=== PATIENT | female | born 1970 | race African-American/Black ===

== ENCOUNTER 2017-03-17 22:55 | Emergency (ER) | payer MEDICARE, MEDICAID ==
[~2017-03-17] VITALS: Ht 165.1 cm; Wt 75.0 kg
[2017-03-17] MEDS ORDERED: ONDANSETRON HCL 4MG/2ML VIAL IV STA (23:08)
[2017-03-17] MEDS ORDERED: SODIUM CHLORIDE 0.9% 1,000 ML IV ONE (23:08)
[2017-03-17 23:27] LABS: BASOPHILS % 0.3 % (0.0-2.0); EOSINOPHILS % 0.4 % (0.0-5.0); HEMATOCRIT. 35.6 % (36.0-48.0); HEMOGLOBIN. 11.8 g/dL (12.0-16.0); LYMPHOCYTES % 18.2 % (20.0-50.0); MEAN CORPUSCULAR HEMOGLOBIN 30.8 pg (28.0-32.0); MEAN CORPUSCULAR HGB CONC 33.2 g/dL (31.0-37.0); MEAN CORPUSCULAR VOLUME 92.8 fL (81.0-99.0); MEAN PLATELET VOLUME 8.7 fl (7.4-10.4); NEUTROPHILS % 74.1 % (40.0-76.0); PLATELET 230 x1000/uL (130-400); RED BLOOD CELL COUNT 3.84 mill/uL (4.2-5.4); RED CELL DISTRIBUTION WIDTH 14.7 % (11.6-14.6); WHITE BLOOD COUNT 11.4 x1000/uL (4.5-11.0)
[2017-03-17 23:35] LABS: PROTHROMBIN TIME 10.5 sec
[2017-03-17 23:50] LABS: ALANINE AMINOTRANSFERASE 15 IU/L (13-61); ALBUMIN 3.3 g/dL (3.4-5.0); ANION GAP 18; CALCIUM 8.6 mg/dL (8.5-10.1); CARBON DIOXIDE 23 mEq/L (21-32); CHLORIDE 100 mEq/L (98-107); ETHANOL BLOOD 25 mg/dL; INDEX HEMOLYSI 1 (1-3); INDEX ICTERIC 1 (1-4); INDEX LIPEMIC 1 (1-3); UREA NITROGEN BLOOD 8 mg/dL (7-21)
[2017-03-17 23:53] LABS: eGFR > 60 mL/min (>60)
[2017-03-18] MEDS ORDERED: POTASSIUM CHLORIDE 20MEQ TABLET SR PO ONE (00:15)
[2017-03-18 01:30] VITALS: BP 114/70
== END 2017-03-18 01:45 | disposition home or self-care (01) ==
LOC: ER 22:57
DX: R55 Syncope and collapse (principal); Z88.6 Allergy status to analgesic agent; F17.200 Nicotine dependence, unspecified, uncomplicated
CPT/HCPCS: 36415; 71010; 80053; 85025; 85610; 93005; 96361; 96374; 99285; G0482; J2405; J7030

== ENCOUNTER 2018-07-09 08:47 | Inpatient (IN) | payer MEDICARE, MEDICAID ==
[~2018-07-09] VITALS: Ht 165.1 cm; Wt 54.9 kg
[2018-07-09] MEDS ORDERED: ONDANSETRON 4MG ODT PO STA (12:26)
[2018-07-09 12:59] LABS: BASOPHILS % 0.3 % (0.0-2.0); EOSINOPHILS % 0.1 % (0.0-5.0); HEMATOCRIT. 40.3 % (36.0-48.0); HEMOGLOBIN. 13.9 g/dL (12.0-16.0); MEAN CORPUSCULAR HEMOGLOBIN 33.4 pg (28.0-32.0); MEAN CORPUSCULAR VOLUME 96.7 fL (81.0-99.0); MEAN PLATELET VOLUME 9.1 fl (7.4-10.4); MONOCYTES % 8.5 % (2.0-8.0); NEUTROPHILS % 80.1 % (40.0-76.0); PLATELET 239 x1000/uL (130-400); RED BLOOD CELL COUNT 4.17 mill/uL (4.2-5.4); RED CELL DISTRIBUTION WIDTH 12.9 % (11.6-14.6)
[2018-07-09 13:00] LABS: CHLORIDE 93 mEq/L (98-107)
[2018-07-09 13:04] LABS: HCG SCREEN NEGATIVE
[2018-07-09] MEDS ORDERED: POTASSIUM CHLORIDE INJ 40 MEQ in DEXT 5% WATER 250 ML IV ONE (13:45)
[2018-07-09] MEDS ORDERED: PIPERACILLIN/TAZOBACTAM 3.375GM/50ML PREMIX IV NR (14:00)
[2018-07-09] MEDS ORDERED: SODIUM CHLORIDE 0.9% 1,000 ML IV SCH ×2 (15:00→15:30)
[2018-07-09] MEDS ORDERED: ATROPINE SULFATE 0.4MG/ML VIAL IV PRN ×3 (15:00→17:15)
[2018-07-09] MEDS ORDERED: FENTANYL CITRATE/PF 50MCG/ML 2ML VIAL IV PRN ×2 (15:00→15:30)
[2018-07-09] MEDS ORDERED: ONDANSETRON HCL 4MG/2ML VIAL IV PRN ×5 (15:00→17:15)
[2018-07-09] MEDS ORDERED: HYDROMORPHONE HCL/PF 2MG/ML CPJ IV PRN ×3 (15:00→17:00)
[2018-07-09] MEDS ORDERED: MEPERIDINE HCL/PF 25MG/ML CPJ IV PRN ×3 (15:00→17:00)
[2018-07-09] MEDS ORDERED: DEXT 5%/0.45% NACL KCL 20MEQ/L 1,000 ML IV SCH ×2 (15:05→17:15)
[2018-07-09] MEDS ORDERED: MIDAZOLAM HCL 2 MG/2 ML VIAL ONE (15:11)
[2018-07-09] MEDS ORDERED: PROPOFOL 200MG/20ML VIAL IV ONE (15:11)
[2018-07-09] MEDS ORDERED: FENTANYL CITRATE/PF 50MCG/ML 5ML VIAL ONE (15:11)
[2018-07-09] MEDS ORDERED: ROCURONIUM BROMIDE 10MG/ML VIAL 5ML IV ONE (15:11)
[2018-07-09] MEDS ORDERED: SKIN ADHESIVE 0.7 GM EA TOP ONE (15:12)
[2018-07-09] MEDS ORDERED: BUPIVACAINE HCL/PF 0.5% (5MG/ML) 10ML ONE (15:12)
[2018-07-09] MEDS ORDERED: HYDROCODONE/ACETAMINOPHEN 5/325MG TABLET PO PRN ×6 (15:15→17:15)
[2018-07-09] MEDS ORDERED: ACETAMINOPHEN 325MG TABLET PO PRN ×2 (15:15→15:30)
[2018-07-09] MEDS ORDERED: MORPHINE SULFATE 4 MG/ML CPJ (NOT FOR IM USE) IV PRN ×3 (15:15→15:30)
[2018-07-09] MEDS ORDERED: MORPHINE SULFATE 2 MG/ML CPJ (NOT FOR IM USE) IV PRN (15:15)
[2018-07-09] MEDS ORDERED: ONDANSETRON HCL 4MG/2ML VIAL ONE (15:38)
[2018-07-09] MEDS ORDERED: METOCLOPRAMIDE HCL 10MG/2ML VIAL ONE (15:38)
[2018-07-09] MEDS: FENTANYL CITRATE/PF 50MCG/ML 2ML VIAL IV PRN ×2 (17:06→17:17)
[2018-07-09 17:42] LABS: CLARITY URINE CLOUDY (CLEAR); COLOR URINE ORANGE (YELLOW); KETONES URINE TRACE (NEGATIVE); LEUKOCYTE ESTERASE URINE 1+ (NEGATIVE); NITRITE URINE POSITIVE (NEGATIVE); OCCULT BLOOD URINE NEGATIVE (NEGATIVE); PROTEIN URINE 2+ (NEGATIVE); SPECIFIC GRAVITY URINE 1.023 (1.005-1.030)
[2018-07-09 18:30] VITALS: BP 112/78
[2018-07-09 19:53] VITALS: BP 110/80
[2018-07-09 20:26] LABS: CHLORIDE 98 mEq/L (98-107)
[2018-07-09] MEDS ORDERED: POTASSIUM CHLORIDE 20MEQ TABLET SR PO NR (22:30)
[2018-07-09] MEDS: DEXT 5%/0.45% NACL KCL 20MEQ/L 1,000 ML IV SCH (23:10)
[2018-07-09 23:50] VITALS: BP 101/70
[2018-07-10] VITALS (9 sets, daily range): BP systolic 88–113; BP diastolic 59–70
[2018-07-10] MEDS: DEXT 5%/0.45% NACL KCL 20MEQ/L 1,000 ML IV SCH ×2 (08:20→18:04)
[2018-07-10] MEDS ORDERED: SODIUM CHLORIDE 0.9% 1000ML BAG (SEPSIS BOLUS) IV ONE (09:15)
[2018-07-10] MEDS ORDERED: POTASSIUM CHLORIDE 20MEQ TABLET SR PO NR (09:50)
[2018-07-10] MEDS ORDERED: SODIUM CHLORIDE 0.9% 1,000 ML IV SCH (10:00)
[2018-07-10 12:30] LABS: BASOPHILS % 0.2 % (0.0-2.0); EOSINOPHILS % 0.4 % (0.0-5.0); HEMATOCRIT. 34.7 % (36.0-48.0); HEMOGLOBIN. 11.8 g/dL (12.0-16.0); LYMPHOCYTES % 12.1 % (20.0-50.0); MEAN CORPUSCULAR HEMOGLOBIN 33.2 pg (28.0-32.0); MEAN CORPUSCULAR VOLUME 97.6 fL (81.0-99.0); MEAN PLATELET VOLUME 9.2 fl (7.4-10.4); MONOCYTES % 9.6 % (2.0-8.0); NEUTROPHILS % 77.7 % (40.0-76.0); PLATELET 231 x1000/uL (130-400); RED BLOOD CELL COUNT 3.55 mill/uL (4.2-5.4); RED CELL DISTRIBUTION WIDTH 13.1 % (11.6-14.6)
[2018-07-10 12:44] LABS: CHLORIDE 102 mEq/L (98-107)
[2018-07-10 14:21] LABS: *BARBITURATES SCREEN URINE NEGATIVE (NEGATIVE); *COCAINE SCREEN URINE NEGATIVE (NEGATIVE); METHADONE URINE SCREEN NEGATIVE (NEGATIVE)
[2018-07-10 14:22] LABS: *AMPHETAMINES SCREEN URINE NEGATIVE (NEGATIVE); OPIATES URINE SCREEN NEGATIVE (NEGATIVE); PHENCYCLIDINE URINE SCREEN NEGATIVE (NEGATIVE)
[2018-07-10 14:31] LABS: *BENZODIAZEPINES SCREEN URINE PRESUMTIVE POSITIVE (NEGATIVE); CANNABINOID URINE SCREEN PRESUMTIVE POSITIVE (NEGATIVE)
== END 2018-07-10 20:55 | disposition home or self-care (01) | DRG 341 ==
LOC: ER 08:47 → EDBEDREQTM 13:57 → EDBEDREQ 13:57 → ENRESERV 15:18 → ER 15:25 → CANBEDREQ 17:38 → OBSVTOIN 18:37 → 8WST 18:37
PROVIDERS: ADMIT Family Medicine; ATTEND Family Medicine
PROC: 0DTJ4ZZ Resection of Appendix, Percutaneous Endoscopic Approach (ICD-10-PCS; principal; 2018-07-09 14:49)
DX: K35.80 Unspecified acute appendicitis (principal); E43 Unspecified severe protein-calorie malnutrition; J84.9 Interstitial pulmonary disease, unspecified; I10 Essential (primary) hypertension; J44.9 Chronic obstructive pulmonary disease, unspecified; E86.0 Dehydration; K57.30 Diverticulosis of large intestine without perforation or abscess without bleeding; K66.8 Other specified disorders of peritoneum; Z86.73 Personal history of transient ischemic attack (TIA), and cerebral infarction without residual deficits; Z88.5 Allergy status to narcotic agent; Z88.8 Allergy status to other drugs, medicaments and biological substances; Z68.20 Body mass index [BMI] 20.0-20.9, adult; Z79.899 Other long term (current) drug therapy
CPT/HCPCS: 36415; 74176; 80053; 80305; 81003; 83690; 84703; 85025; 88304; 99285; J2250; J2405; J2543; J2704; J2765; J3010; J3480; J3490; J7030; J7060; Q0162

== ENCOUNTER 2019-01-18 05:48 | Day surgery (SDC) | payer MEDICARE, MEDICAID ==
[~2019-01-18] VITALS: Ht 165.1 cm; Wt 53.1 kg
[2019-01-18] MEDS ORDERED: LACTATED RINGERS 1,000 ML IV SCH (06:30)
[2019-01-18 06:47] LABS: BASOPHILS % 0.6 % (0.0-2.0); EOSINOPHILS % 0.6 % (0.0-5.0); HEMATOCRIT. 36.9 % (36.0-48.0); HEMOGLOBIN. 12.2 g/dL (12.0-16.0); LYMPHOCYTES % 21.7 % (20.0-50.0); MEAN CORPUSCULAR HEMOGLOBIN 33.2 pg (28.0-32.0); MEAN CORPUSCULAR VOLUME 100.3 fL (81.0-99.0); MEAN PLATELET VOLUME 8.8 fl (7.4-10.4); MONOCYTES % 11.6 % (2.0-8.0); NEUTROPHILS % 65.5 % (40.0-76.0); PLATELET 217 x1000/uL (130-400); RED BLOOD CELL COUNT 3.68 mill/uL (4.2-5.4); RED CELL DISTRIBUTION WIDTH 13.8 % (11.6-14.6)
[2019-01-18 06:52] LABS: CHLORIDE 98 mEq/L (98-107)
[2019-01-18 06:58] LABS: PARTIAL THROMBOPLASTIN TIME 26.4 sec (23.4-31.0); PROTHROMBIN TIME 10.5 sec (9.1-11.1)
[2019-01-18 07:09] LABS: HCG SCREEN NEGATIVE
[2019-01-18] MEDS ORDERED: ALBUMIN HUMAN 12.5G/250ML (5%) IV ONE (07:50)
[2019-01-18] MEDS ORDERED: POTA-9 PO (07:56)
[2019-01-18] MEDS ORDERED: CHLO25TA2 PO (07:56)
[2019-01-18] MEDS ORDERED: HYDR200T35 PO (07:56)
[2019-01-18] MEDS ORDERED: ASPI-1159 PO (07:56)
[2019-01-18] MEDS ORDERED: GABA800T97 PO (07:56)
[2019-01-18] MEDS ORDERED: PRED5TAB PO (07:56)
[2019-01-18] MEDS ORDERED: LIP40 PO (07:56)
[2019-01-18] MEDS ORDERED: CALC-30 PO (07:56)
[2019-01-18] MEDS ORDERED: PROPOFOL 200MG/20ML VIAL IV ONE (07:57)
[2019-01-18] MEDS ORDERED: LIDOCAINE HCL/PF 1% 10 MG/ML 5ML VIAL ONE (07:57)
[2019-01-18] MEDS ORDERED: SUCCINYLCHOLINE CHLORIDE 200MG/10ML IV ONE (07:57)
[2019-01-18] MEDS ORDERED: ONDANSETRON HCL 4MG/2ML INJ ONE (07:57)
[2019-01-18] MEDS ORDERED: GLYCOPYRROLATE 0.2 MG/ML 2ML VIAL ONE (07:57)
[2019-01-18] MEDS ORDERED: METOCLOPRAMIDE HCL 10MG/2ML VIAL ONE (07:57)
[2019-01-18] MEDS ORDERED: MIDAZOLAM HCL 2 MG/2 ML VIAL ONE (07:57)
[2019-01-18] MEDS ORDERED: FENTANYL CITRATE/PF 50MCG/ML 2ML VIAL ONE ×2 (07:57→08:36)
[2019-01-18] MEDS ORDERED: KCL 20MEQ/100ML PREMIX 100 ML IV NR (08:00)
[2019-01-18] MEDS ORDERED: SODIUM CHLORIDE 0.9% 1,000 ML IV ONE (08:56)
[2019-01-18] MEDS ORDERED: ONDANSETRON HCL 4MG/2ML INJ IV PRN (09:00)
[2019-01-18] MEDS ORDERED: MEPERIDINE HCL/PF 25MG/ML CPJ IV PRN ×2 (09:00)
[2019-01-18] MEDS ORDERED: HYDROMORPHONE HCL/PF 2MG/ML CPJ IV PRN (09:00)
== END 2019-01-18 11:20 | disposition home or self-care (01) ==
LOC: OR 05:48
PROVIDERS: ATTEND Obstetrics & Gynecology
DX: N85.8 Other specified noninflammatory disorders of uterus (principal); I10 Essential (primary) hypertension; E78.00 Pure hypercholesterolemia, unspecified; I69.351 Hemiplegia and hemiparesis following cerebral infarction affecting right dominant side; M32.9 Systemic lupus erythematosus, unspecified; M19.90 Unspecified osteoarthritis, unspecified site; Z98.890 Other specified postprocedural states; Z72.89 Other problems related to lifestyle; Z88.0 Allergy status to penicillin; Z88.5 Allergy status to narcotic agent; Z88.8 Allergy status to other drugs, medicaments and biological substances; Z79.82 Long term (current) use of aspirin; Z79.899 Other long term (current) drug therapy; Z90.49 Acquired absence of other specified parts of digestive tract; Z83.3 Family history of diabetes mellitus; Z82.49 Family history of ischemic heart disease and other diseases of the circulatory system; Z82.3 Family history of stroke
CPT/HCPCS: 36415; 58558; 80053; 84703; 85025; 85610; 85730; 86850; 86900; 86901; 88305; 93005; J0330; J2250; J2405; J2704; J2765; J3010; J3480; J3490; P9041

== ENCOUNTER 2020-10-24 12:20 | Emergency (ER) | payer MEDICARE, MEDICAID ==
[~2020-10-24] VITALS: Ht 165.1 cm; Wt 66.0 kg
[~2020-10-24 12:20] MED LIST: ASPI-1497 PO; CALC-30 PO; CHLO25TA2 PO; GABA800T97 PO; HYDR200T35 PO; LIP40 PO; POTA-9 PO; PRED5TAB PO
[2020-10-24] MEDS ORDERED: KETOROLAC 60MG/2ML VIAL IM ONE (16:45)
[2020-10-24] MEDS ORDERED: CYCLOBENZAPRINE 10MG TABLET PO ONE (16:45)
[2020-10-24 16:54] VITALS: BP 148/98
== END 2020-10-24 17:17 | disposition home or self-care (01) ==
LOC: ER 12:34
DX: M54.5 Low back pain (principal); I10 Essential (primary) hypertension; M32.9 Systemic lupus erythematosus, unspecified; Z86.73 Personal history of transient ischemic attack (TIA), and cerebral infarction without residual deficits; Z88.0 Allergy status to penicillin; Z88.6 Allergy status to analgesic agent; Z79.82 Long term (current) use of aspirin
CPT/HCPCS: 96372; 99283; J1885

== ENCOUNTER 2023-02-15 13:14 | Emergency (ER) | payer MEDICARE, MEDICAID ==
[~2023-02-15] VITALS: Ht 165.1 cm; Wt 69.0 kg
[~2023-02-15 13:14] MED LIST changes: +CALC-1249 PO; -CALC-30 PO; +POTA-202 PO; -POTA-9 PO
[2023-02-15 13:36] VITALS: BP 144/105
[2023-02-15] MEDS ORDERED: IBUPROFEN 400MG TABLET PO ONE (15:45)
[2023-02-15 16:27] LABS: BASOPHILS % 0.3 % (0.0-2.0); EOSINOPHILS % 0.7 % (0.0-5.0); HEMATOCRIT. 36.6 % (36.0-48.0); HEMOGLOBIN. 12.4 g/dL (12.0-16.0); LYMPHOCYTES % 24.1 % (20.0-50.0); MEAN CORPUSCULAR HEMOGLOBIN 31.8 pg (28.0-32.0); MEAN CORPUSCULAR VOLUME 94.1 fL (81.0-99.0); MEAN PLATELET VOLUME 9.2 fl (7.4-10.4); MONOCYTES % 8.6 % (2.0-8.0); NEUTROPHILS % 66.3 % (40.0-76.0); PLATELET 215 x1000/uL (130-400); RED BLOOD CELL COUNT 3.89 mill/uL (4.2-5.4); RED CELL DISTRIBUTION WIDTH 15.7 % (11.6-14.6)
[2023-02-15 16:27] LABS: CLARITY URINE CLEAR (CLEAR); COLOR URINE YELLOW (YELLOW); KETONES URINE TRACE (NEGATIVE); LEUKOCYTE ESTERASE URINE NEGATIVE (NEGATIVE); NITRITE URINE NEGATIVE (NEGATIVE); OCCULT BLOOD URINE NEGATIVE (NEGATIVE); PH URINE 5.5 (4.5-8.0); PROTEIN URINE TRACE (NEGATIVE); SPECIFIC GRAVITY URINE 1.018 (1.005-1.030); UROBILINOGEN URINE 0.2 E.U./dL (0.2-1.0)
[2023-02-15 16:30] LABS: CHLORIDE 104 mEq/L (98-107)
[2023-02-15] MEDS ORDERED: IBUP-2028 MT (17:45)
== END 2023-02-15 18:27 | disposition home or self-care (01) ==
LOC: ER 13:14
DX: M79.641 Pain in right hand (principal); M79.642 Pain in left hand; M25.531 Pain in right wrist; M54.9 Dorsalgia, unspecified; I10 Essential (primary) hypertension; Z86.73 Personal history of transient ischemic attack (TIA), and cerebral infarction without residual deficits; Z79.899 Other long term (current) drug therapy
CPT/HCPCS: 36415; 72100; 73110; 73130; 80048; 81003; 85025; 99284

== ENCOUNTER 2025-04-24 10:51 | Emergency (ER) | payer MEDICARE, MEDICAID ==
[~2025-04-24] VITALS: Ht 165.1 cm; Wt 71.4 kg
[~2025-04-24 10:51] MED LIST changes: +IBUP-2028 MT
[2025-04-24 11:24] VITALS: O2SAT 100
[2025-04-24] MEDS ORDERED: PRED5TAB48 MT (11:44)
[2025-04-24] MEDS ORDERED: CLIN-116 MT (12:10)
[2025-04-24 12:38] VITALS: BP 146/96; PULSE 83; RESP 18; TEMP 36.8; O2SAT 100
== END 2025-04-24 12:43 | disposition home or self-care (01) ==
LOC: ER 10:51
DX: H66.93 Otitis media, unspecified, bilateral (principal); I10 Essential (primary) hypertension; F10.90 Alcohol use, unspecified, uncomplicated; Z79.52 Long term (current) use of systemic steroids; Z79.82 Long term (current) use of aspirin; Z79.899 Other long term (current) drug therapy; Z86.73 Personal history of transient ischemic attack (TIA), and cerebral infarction without residual deficits; Z88.0 Allergy status to penicillin; Z88.5 Allergy status to narcotic agent; Z96.649 Presence of unspecified artificial hip joint; Y90.9 Presence of alcohol in blood, level not specified
CPT/HCPCS: 87070; 87430; 99283